=== PATIENT | female | born 1940 | race Caucasian/White ===

== ENCOUNTER → 2018-11-28 | Outpatient (REF) | payer MEDICARE ==
[~2018-11-28] MED LIST: AMOX/K CLAV875 M1 PO; AMOXICILLIN/PO500 MG PO; AUGMENTIN875TAB OR; AUGMENTIN875TAB PO; CYANOCOBALAM1000 MCG IJ; FLAGYL500 MG PO; FLONASE NASAL50 MCG; LOMOTIL2.5 MG OR; METRONIDAZOL500 MG PO; MUCINEX600 MG PO; NORVASC5 MG OR; PHENERGAN12.5 MG/TA PO; PREDNISONE10 MG PO; PROAIR HFA IN; ROBITUSSIN AC10 ML PO; ZITHROMAX250 MG PO; ZOFRAN ODT4 MG PO; ZOFRAN ODT8 MG OR
[2018-11-28 10:12] LABS: GFR > 60 ML/MIN (>=60 (CALC)); GFR FOR AFR.AMER. > 60 ML/MIN (>=60 (CALC))
== END | disposition home or self-care (01) ==
LOC: CT 09:48
PROVIDERS: ATTEND Surgery
DX: K57.92 Diverticulitis of intestine, part unspecified, without perforation or abscess without bleeding (principal)
CPT/HCPCS: Q9967

== ENCOUNTER 2020-02-09 15:21 | Emergency (ER) | payer MEDICARE ==
[2020-02-09] MEDS ORDERED: CELEBREX100 MG PO (15:37)
[2020-02-09 17:20] VITALS: BP 155/87
[2020-02-09] MEDS ORDERED: TRAMADOL HYDROC50 M1 PO (17:47)
[2020-05-01] MEDS ORDERED: LISINOPRIL5 MG PO (11:05)
[2020-05-01] MEDS ORDERED: MULTI VIT PO (11:05)
[2020-05-01] MEDS ORDERED: VITAMIN B-12500 MCG PO (11:06)
== END 2020-02-09 18:06 | disposition home or self-care (01) ==
LOC: ED 15:21
DX: S86.911A Strain of unspecified muscle(s) and tendon(s) at lower leg level, right leg, initial encounter (principal); X50.1XXA Overexertion from prolonged static or awkward postures, initial encounter; Y93.89 Activity, other specified; Y92.512 Supermarket, store or market as the place of occurrence of the external cause; Y99.0 Civilian activity done for income or pay; M79.661 Pain in right lower leg; M79.89 Other specified soft tissue disorders

== ENCOUNTER 2020-05-07 06:50 | Day surgery (SDC) | payer MEDICARE ==
[~2020-05-07] VITALS: Ht 160 cm; Wt 90.7 kg
[~2020-05-07 06:50] MED LIST changes: +CELEBREX100 MG PO; +LISINOPRIL5 MG PO; +MULTI VIT PO; +TRAMADOL HYDROC50 M1 PO; +VITAMIN B-12500 MCG PO
[2020-05-07 08:44] VITALS: BP 177/78
== END 2020-05-07 09:05 | disposition home or self-care (01) ==
LOC: ENDO 06:50 → ORM 10:30
PROVIDERS: ATTEND Surgery
PROC: 0DJD8ZZ Inspection of Lower Intestinal Tract, Via Natural or Artificial Opening Endoscopic (ICD-10-PCS; principal; 2020-05-07)
DX: K57.30 Diverticulosis of large intestine without perforation or abscess without bleeding (principal); K64.4 Residual hemorrhoidal skin tags; K64.8 Other hemorrhoids; Z11.59 Encounter for screening for other viral diseases

== ENCOUNTER 2020-06-30 07:44 | Emergency (ER) | payer MEDICARE ==
[~2020-06-30] VITALS: Ht 160 cm; Wt 90.0 kg
[2020-06-30 08:21] LABS: IMMATURE GRANULOCYTES 0.6 % (0.0-5.0); MEAN CELL VOLUME 92.2 fL CALC (80.0-100.0); MEAN CORPUSCULAR HGB 29.9 pG CALC (26.0-32.0); MEAN CORPUSCULAR HGB CONC 32.4 g/dL CAL (32.0-36.0); NEUT# 8.15 thou/uL (2.00-7.15); RED BLOOD COUNT 4.08 mill/uL (4.20-5.60); RED CELL DISTRI WIDTH 12.9 % (11.5-15.5)
[2020-06-30] MEDS ORDERED: TRAMADOL HCL50 MG PO (08:33)
[2020-06-30 08:38] LABS: HEMATOCRIT 37.6 % (37.0-47.0); HEMOGLOBIN 12.2 g/dl (12.0-16.0)
[2020-06-30 08:42] LABS: ALBUMIN 3.2 g/dL (3.2-5.0); ALKALINE PHOSPHATASE 100 u/l (38-126); ANION GAP 10 (6-22 (CALC)); BUN 7 mg/dL (8-23); BUN/CREATININE RATIO 12 (12-20 (CALC)); CARBON DIOXIDE 29 mmol/l (22-30); CHLORIDE 100 mmol/l (95-108); CREATININE 0.6 mg/dL (0.5-1.0); GFR > 60 ML/MIN (>=60 (CALC)); GFR FOR AFR.AMER. > 60 ML/MIN (>=60 (CALC)); LIPASE 26 u/l (23-300); POTASSIUM 3.9 mmol/l (3.5-5.1); SGOT/AST 28 u/l (9-36); SODIUM 134 mmol/l (137-146); TOTAL PROTEIN 6.1 g/dL (6.3-8.2)
[2020-06-30 08:51] LABS: BILIRUBIN, TOTAL 1.3 mg/dL (0.0-1.4)
[2020-06-30 09:33] LABS: URINE BLOOD DIPSTICK SMALL (NEGATIVE); URINE COLOR YELLOW; URINE GLUCOSE - DIPSTICK NEGATIVE (NEGATIVE); URINE KETONE 40 mg/dL (NEGATIVE); URINE LEUK ESTERASE NEGATIVE (NEGATIVE); URINE NITRITE - DIPSTICK NEGATIVE (Negative); URINE PH 6.5 (4.5-8.0); URINE PROTEIN - DIPSTICK NEGATIVE (NEG-TRACE)
[2020-06-30 09:34] LABS: URINE BILIRUBIN - DIPSTICK SMALL (NEGATIVE)
[2020-06-30 09:35] LABS: URINE EPITHELIAL CELLS FEW EPI/hpf (0-FEW)
[2020-06-30 10:42] VITALS: BP 144/64
== END 2020-06-30 10:42 ==
LOC: ED 07:44
PROVIDERS: Family Medicine
DX: T81.43XA Infection following a procedure, organ and space surgical site, initial encounter (principal); K65.1 Peritoneal abscess; J45.909 Unspecified asthma, uncomplicated; Y83.6 Removal of other organ (partial) (total) as the cause of abnormal reaction of the patient, or of later complication, without mention of misadventure at the time of the procedure; Z90.49 Acquired absence of other specified parts of digestive tract
CPT/HCPCS: Q9967

== ENCOUNTER 2021-05-08 17:56 | Emergency (ER) | payer MEDICARE ==
[~2021-05-08] VITALS: Ht 160 cm; Wt 77.7 kg
[~2021-05-08 17:56] MED LIST changes: +TRAMADOL HCL50 MG PO
[2021-05-08 20:35] VITALS: BP 152/68
== END 2021-05-08 20:36 | disposition home or self-care (01) ==
LOC: ED 17:56
DX: S82.001A Unspecified fracture of right patella, initial encounter for closed fracture (principal); I10 Essential (primary) hypertension; J45.909 Unspecified asthma, uncomplicated; W19.XXXA Unspecified fall, initial encounter
CPT/HCPCS: L1830

== ENCOUNTER 2023-06-05 18:07 | Emergency (ER) | payer MEDICARE ==
[~2023-06-05] VITALS: Ht 160 cm; Wt 81.0 kg
[2023-06-05] VITALS (12 sets, daily range): BP systolic 148–168; BP diastolic 69–135
[2023-06-05] MEDS ORDERED: AMLODIPINE BES2.5 MG PO (19:02)
[2023-06-05] MEDS ORDERED: NEURONTIN100 MG PO (19:02)
[2023-06-05] MEDS ORDERED: ZOFRAN4 MG/TAB PO ×2 (19:02→21:40)
[2023-06-05 19:04] LABS: BASO% 0.4 % (0-3); EOS% 0.5 % (0-8); HEMATOCRIT 45.6 % (37.0-47.0); HEMOGLOBIN 14.4 g/dl (12.0-16.0); IMMATURE GRANULOCYTES 0.2 % (0.0-5.0); MEAN CELL VOLUME 87.2 fL CALC (80.0-100.0); MEAN CORPUSCULAR HGB 27.5 pG CALC (26.0-32.0); MEAN CORPUSCULAR HGB CONC 31.6 g/dL CAL (32.0-36.0); MONO% 5.3 % (2-13); NEUT# 6.92 thou/uL (2.00-7.15); NEUT% 80.6 % (42-76); RED BLOOD COUNT 5.23 mill/uL (4.20-5.60); RED CELL DISTRI WIDTH 15.7 % (11.5-15.5)
[2023-06-05 19:27] LABS: ALBUMIN 3.9 g/dL (3.2-5.0); ALKALINE PHOSPHATASE 93 u/l (38-126); ANION GAP 10 (6-22 (CALC)); BILIRUBIN, TOTAL 0.9 mg/dL (0.02-1.3); BUN 11 mg/dL (8-23); BUN/CREATININE RATIO 15 (12-20 (CALC)); CARBON DIOXIDE 29 mmol/l (22-30); CHLORIDE 102 mmol/l (95-108); CREATININE 0.7 mg/dL (0.5-1.0); GFR FOR AFR.AMER. > 60 ML/MIN (>=60 (CALC)); GFR OTHER RACES > 60 ML/MIN (>=60 (CALC)); LIPASE 163 u/l (23-300); POTASSIUM 4.2 mmol/l (3.5-5.1); SGOT/AST 28 u/l (9-36); SODIUM 137 mmol/l (137-146); TOTAL PROTEIN 7.2 g/dL (6.3-8.2)
[2023-06-05 19:44] LABS: URINE BILIRUBIN - DIPSTICK Negative (NEGATIVE); URINE BLOOD DIPSTICK Trace-lysed (NEGATIVE); URINE GLUCOSE - DIPSTICK Negative (NEGATIVE); URINE KETONE 15 mg/dL (NEGATIVE); URINE NITRITE - DIPSTICK Negative (Negative); URINE PH 6.5 (4.5-8.0); URINE PROTEIN - DIPSTICK Trace mg/dL (NEG-TRACE); URINE SPECIFIC GRAVITY 1.025; URINE UROBILINOGEN - DIPSTICK 0.2 E.U./dL (0.2)
[2023-06-05 19:46] LABS: URINE COLOR Yellow; URINE LEUK ESTERASE Small (NEGATIVE)
[2023-06-05 19:53] LABS: URINE SQUAMOUS EPITHELIAL CELL MODERATE EPI/hpf (0-FEW)
[2023-06-05] MEDS ORDERED: DICYCLOMINE HCL20 MG PO (21:40)
== END 2023-06-05 21:56 | disposition home or self-care (01) ==
LOC: ED 18:07
PROVIDERS: Nurse Practitioner Family
DX: R10.11 Right upper quadrant pain (principal); R10.12 Left upper quadrant pain; R11.2 Nausea with vomiting, unspecified; I10 Essential (primary) hypertension; J45.909 Unspecified asthma, uncomplicated
CPT/HCPCS: Q9967

== ENCOUNTER 2024-09-07 20:18 | Emergency (ER) | payer MEDICARE ==
[2024-09-07] VITALS (7 sets, daily range): BP systolic 135–163; BP diastolic 55–88
[~2024-09-07] VITALS: Ht 160 cm; Wt 79.0 kg
[~2024-09-07 20:18] MED LIST changes: +AMLODIPINE BES2.5 MG PO; +DICYCLOMINE HCL20 MG PO; +NEURONTIN100 MG PO; +ZOFRAN4 MG/TAB PO
[2024-09-07] MEDS ORDERED: BENZONATATE 200 MG/CAP PO ONE ×2 (21:00→22:10)
[2024-09-07 21:34] LABS: URINE BILIRUBIN - DIPSTICK Negative (NEGATIVE); URINE BLOOD DIPSTICK Small (NEGATIVE); URINE GLUCOSE - DIPSTICK Negative (NEGATIVE); URINE KETONE Negative (NEGATIVE); URINE LEUK ESTERASE Negative (NEGATIVE); URINE NITRITE - DIPSTICK Negative (Negative); URINE PH 6.5 (4.5-8.0); URINE PROTEIN - DIPSTICK Negative (NEG-TRACE); URINE UROBILINOGEN - DIPSTICK 0.2 E.U./dL (0.2)
[2024-09-07 21:41] LABS: URINE COLOR Yellow
[2024-09-07 21:42] LABS: URINE RBC 0-2 RBC/hpf (0-5); URINE WBC 0-2 WBC/hpf (0-5)
[2024-09-07 21:43] LABS: URINE SQUAMOUS EPITHELIAL CELL FEW EPI/hpf (0-FEW)
[2024-09-07] MEDS ORDERED: HYCODAN PO (22:04)
[2024-09-07] MEDS ORDERED: BENZONATATE 200 MG/CAP PO PRN (22:05)
[2024-09-07] MEDS ORDERED: BENZONATATE200 MG PO (22:06)
== END 2024-09-07 22:26 | disposition home or self-care (01) ==
LOC: ED 20:18
PROVIDERS: Family Medicine
DX: J10.1 Influenza due to other identified influenza virus with other respiratory manifestations (principal); I10 Essential (primary) hypertension; J45.909 Unspecified asthma, uncomplicated; Z86.16 Personal history of COVID-19; Z20.822 Contact with and (suspected) exposure to COVID-19